=== PATIENT | male | born 1990 | race Caucasian/White ===

== ENCOUNTER 2022-05-15 16:33 | Observation (INO) | payer OTHER, SELFPAY ==
[2022-05-15] MEDS ORDERED: Dextrose 50% Abboject 50 ML SYRINGE SLOW IVP PRN (19:58)
[2022-05-15] MEDS ORDERED: Dextrose 5% in Water 1,000 ML IV PRN (19:58)
[2022-05-15] MEDS ORDERED: Ondansetron ODT 4 MG TAB PO PRN (19:58)
[2022-05-15] MEDS ORDERED: Ondansetron PF 4 MG/2 ML Vial IVP PRN (19:58)
[2022-05-15 20:14] LABS: #Lymphocytes 1.9 thou/uL (1.20-3.40); #Monocytes 0.7 thou/uL (0.11-0.59); %Basophils 0.1 % (0.0-1.0); %Eosinophils 0.4 % (0.0-10.0); %Lymphocytes 17.6 % (21.0-51.0); %Monocytes 6.3 % (0.0-10.0); %Neutrophils 75.6 % (42.0-75.0); Hemoglobin 14.5 g/dL (14.0-18.0); Mean Corpuscular HGB CONC 33.7 g/dL (32.0-36.0); Mean Corpuscular Hemoglobin 31.2 pg (27.0-31.0); Mean Corpuscular Volume 92.4 fL (78.0-98.0); Mean Platelet Volume 6.5 fL (7.4-10.4); Platelet Count 338 thou/uL (130-400); RBC Distribution Width 12.2 % (11.5-14.5); Red Blood Cell (RBC) Count 4.65 mill/uL (4.70-6.10); White Blood Cell (WBC) Count 10.6 thou/uL (4.8-10.8)
[2022-05-15 20:39] LABS: ALT (SGPT) 16 U/L (8-55); AST (SGOT) 17 U/L (5-34); Albumin 4.2 g/dL (3.5-5.0); Alkaline Phosphatase 114 U/L (40-110); Anion Gap 13 mmol/L (10-20); BUN (Urea Nitrogen) 16 mg/dL (8.9-20.6); Bilirubin, Total 0.4 mg/dL (0.2-1.2); Calc. Creatinine Clearance 0 mL/min (70-130); Calcium 9.7 mg/dL (7.8-10.44); Carbon Dioxide 28 mmol/L (22-29); Chloride 102 mmol/L (98-107); Globulin 3.2 g/dL (2.4-3.5); Glucose 87 mg/dL (70-105); Protein, Total 7.4 g/dL (6.0-8.3); Sodium 139 mmol/L (136-145)
[2022-05-15] MEDS: Famotidine 20 MG TAB PO SCH (22:01)
[2022-05-15] MEDS: traMADol HCl 50 MG TAB PO PRN (22:02)
[2022-05-15] MEDS: Ibuprofen 200 MG TAB PO SCH (22:02)
[2022-05-15 22:31] VITALS: BMI 25.8
[2022-05-15 23:13] LABS: SARS-CoV-2 NAA Rapid Test Not Detected (NotDetected)
[2022-05-15] MEDS: Acetaminophen 325 MG TAB PO SCH (23:34)
[2022-05-15] MEDS ORDERED: Lactated Ringer's 1,000 ML IV SCH (23:59)
[2022-05-16] MEDS: Ibuprofen 200 MG TAB PO SCH ×4 (03:36→19:56)
[2022-05-16] MEDS: Acetaminophen 325 MG TAB PO SCH ×4 (05:42→23:26)
[2022-05-16] MEDS ORDERED: CEFAZOLIN 2 GM in Sodium Chloride 0.9% 100 ML IVPB SCH (08:15)
[2022-05-16] MEDS: Famotidine 20 MG TAB PO SCH ×2 (08:31→19:55)
[2022-05-16] MEDS: traMADol HCl 50 MG TAB PO PRN ×3 (08:36→23:26)
[2022-05-16] MEDS ORDERED: Acetaminophen 325 MG TAB ONE (14:09)
[2022-05-16] MEDS ORDERED: CEFAZOLIN 2 GM VIAL ONE (14:09)
[2022-05-16] MEDS ORDERED: Sodium Chloride 0.9% 100 ML ONE ×2 (14:10→14:12)
[2022-05-16] MEDS ORDERED: Fentanyl 100 MCG/2 ML VIAL ONE (14:37)
[2022-05-16] MEDS ORDERED: Bupivacaine PF 0.5% 30 ML VIAL ONE ×3 (15:02→16:57)
[2022-05-16] MEDS ORDERED: Neomycin-Polymyxin 1 ML AMP ONE (15:02)
[2022-05-16] MEDS ORDERED: Lidocaine 1% w/Epinephrine 1:100K 20 ML VIAL ONE (15:02)
[2022-05-16] MEDS ORDERED: HYDROmorphone 0.5 MG/0.5 ML SYRINGE ONE (15:11)
[2022-05-16] MEDS ORDERED: fentaNYL Citrate/PF 100 MCG/2 ML SYRINGE ONE ×3 (15:11→18:18)
[2022-05-16] MEDS ORDERED: Lidocaine 1% PF 5 ML VIAL ONE (15:14)
[2022-05-16] MEDS ORDERED: PROPOFOL 200 MG/20 ML VIAL ONE (15:14)
[2022-05-16] MEDS ORDERED: Dexamethasone 20 MG/5 ML VIAL ONE (15:14)
[2022-05-16] MEDS ORDERED: Ondansetron PF 4 MG/2 ML Vial ONE (15:14)
[2022-05-16] MEDS ORDERED: HYDROmorphone 2 MG/ML VIAL SLOW IVP PRN (17:41)
[2022-05-16] MEDS ORDERED: Promethazine HCl 25 MG/ML VIAL IM PRN (17:41)
[2022-05-16] MEDS ORDERED: Ondansetron HCl/PF 4 MG/2 ML Vial IVP PRN (17:41)
[2022-05-16] MEDS ORDERED: Promethazine HCl 25 MG/ML VIAL IVPB PRN (17:41)
[2022-05-17] MEDS: Ibuprofen 200 MG TAB PO SCH ×2 (02:20→09:11)
[2022-05-17] MEDS ORDERED: Cyclobenzaprine 10 MG TAB PO PRN (03:09)
[2022-05-17] MEDS ORDERED: Morphine 2 MG/ML VIAL SLOW IVP SCH (03:15)
[2022-05-17] MEDS ORDERED: Morphine 2 MG/ML VIAL SLOW IVP PRN (04:15)
[2022-05-17] MEDS: Acetaminophen 325 MG TAB PO SCH ×2 (05:12→09:14)
[2022-05-17] MEDS ORDERED: traMADol HCl 50 MG TAB PO PRN (08:41)
[2022-05-17] MEDS ORDERED: Gabapentin 300 MG CAP PO SCH (09:00)
[2022-05-17] MEDS: Famotidine 20 MG TAB PO SCH (09:13)
[2022-05-17] MEDS ORDERED: traMADol HCl 50 MG TAB PO SCH (12:00)
[2022-05-17 12:25] VITALS: BP 112/67; TEMP 97.5
== END 2022-05-17 13:45 | disposition home or self-care (01) ==
LOC: ERS 16:33 → SURG A 19:58
PROVIDERS: ADMIT Surgery; ATTEND Surgery
PROC: 0QSJ04Z Reposition Right Fibula with Internal Fixation Device, Open Approach (ICD-10-PCS; principal; 2022-05-16)
PROC: 0QSG04Z Reposition Right Tibia with Internal Fixation Device, Open Approach (ICD-10-PCS; 2022-05-16)
PROC: 0SSF04Z Reposition Right Ankle Joint with Internal Fixation Device, Open Approach (ICD-10-PCS; 2022-05-16)
DX: S82.841A Displaced bimalleolar fracture of right lower leg, initial encounter for closed fracture (principal); S93.431A Sprain of tibiofibular ligament of right ankle, initial encounter; G89.11 Acute pain due to trauma; F17.220 Nicotine dependence, chewing tobacco, uncomplicated; Z20.822 Contact with and (suspected) exposure to COVID-19; V80.010A Animal-rider injured by fall from or being thrown from horse in noncollision accident, initial encounter
CPT/HCPCS: 36415; 76000; 80053; 85025; 96374; C1713; G0378; J0690; J1100; J1170; J2270; J2405; J2704; J3010; J3490; J7120; S0020; U0002